=== PATIENT | male | born 1945 | race African-American/Black ===

== ENCOUNTER 2018-07-01 08:42 | Outpatient (CLI) | payer MEDICARE ==
--- NOTE | 2018-07-01 11:04 | CT ---
CT LUMBAR SPINE: INDICATIONS: Spinal stenosis. Back pain. TECHNIQUE: Multiple axial tomograms obtained through the lumbar spine with multiplanar reconstruction. FINDINGS: The lumbar vertebrae maintain height and alignment. Prominent degenerative changes are noted. There are anterior and lateral bridging osteophytes present throughout. Loss of disk space with degenerat carissa disk change and vacuum phenomena noted at L4-L5 and L5-S1. L1-L2: Mild diffuse disk bulge. Facet hypertrophy. Mild central canal stenosis. A disk osteophyte complex projects laterally, to the right, and could impinge on the exiting right nerve root. L2-L3: Broad-based disk bulge with prominent facet hypertrophy results in moderate central canal bart nosis. There is a disk osteophyte complex projecting to the left, encroaching into the left foramina , displacing the exiting left L2 nerve root. L3-L4: Diffuse disk bulge. Facet hypertrophy. Moderate to severe central canal stenosis. Disk ost eophyte complex projects laterally on both sides. L4-L5: Broad-based disk bulge and facet and ligamentous hypertrophy result in moderate central canal stenosis. Diffuse disk bulge and disk osteophyte complex, more prominent to the right; however, dif fuse disk bulge produces bilateral foraminal encroachment. Severe right foraminal stenosis. L5-S1: Broad-based bulge and facet hypertrophy. Moderate central canal stenosis, although the theca l sac is congenitally smaller. Bilateral foraminal stenosis due to hypertrophic change and disk bulg e. 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 POS: [facility]
--- NOTE | 2018-07-01 11:10 | CT ---
CT CERVICAL SPINE: Multiple axial tomograms were obtained through the cervical spine with multiplanar reconstruction. INDICATION: Spinal stenosis. Neck pain. FINDINGS: Prominent degenerative changes are seen at C5-6 and C6-7. There is mild anterior wedging of C5. The re is loss of height of C6 vertebrae. Loss of disk space at these levels with prominent anterior ost eophytes. Posterior spondylosis oat these levels is noted. The C2, C3, and C4 vertebrae appear of normal height and alignment. Mild degenerative spurring from these vertebrae. At C2-3, mild disk bulge without central canal or foraminal stenosis. At C3-4, mild disk bulge and minimal spondylosis. No central canal or foraminal stenosis. At C4-5, Mild disk bugle and mild spondylosis. No significant central canal or foraminal stenosis. At C5-6, posterior disk bulge and spondylosis impinge on and mildly flatten the anterior cord. Mild bilateral foraminal narrowing due to uncinate hypertrophy. At C6-7, prominent spondylitic osteophytes are present which severely compress the cord. Bilateral f oraminal stenosis due to hypertrophic change, severe on the left. At C7-T1, mild spondylosis without evidence of central canal stenosis. IMPRESSION: 1. Prominent posterior spondylitic change at C5-6 and C6-7 impinge on the cord and produce foraminal stenosis. These findings are more severe at C6-7 as described above. 2. Incidentally noted is a mildly prominent and heterogeneous thyroid with a suggestion of a left lo be thyroid nodule measuring 1.5 cm. Consider elective followup thyroid ultrasound. POS: [facility]
== END 2018-07-01 08:43 | disposition home or self-care (01) ==
LOC: NAV CT 08:42
PROVIDERS: ATTEND Internal Medicine
DX: M48.062 Spinal stenosis, lumbar region with neurogenic claudication (principal); M47.812 Spondylosis without myelopathy or radiculopathy, cervical region; M48.02 Spinal stenosis, cervical region; M51.36 Other intervertebral disc degeneration, lumbar region
CPT/HCPCS: 72125; 72131

== ENCOUNTER 2022-07-02 13:25 | Emergency (ER) | payer MEDICARE ==
[~2022-07-02 13:25] MED LIST: Iopamidol 370 76% 100 ML VIAL ONE
[2022-07-02] MEDS ORDERED: Ipratropium/Albuterol 3 ML NEB ONE ×3 (13:35→15:14)
[2022-07-02 14:17] LABS: #Basophils 0.2 thou/uL (0.0-0.2); #Eosinphils 0.1 thou/uL (0.0-0.7); #Lymphocytes 1.1 thou/uL (1.20-3.40); #Monocytes 0.7 thou/uL (0.11-0.59); #Neutrophils 4.5 thou/uL (1.40-6.50); %Basophils 2.4 % (0.0-1.0); %Eosinophils 1.7 % (0.0-10.0); %Lymphocytes 16.3 % (21.0-51.0); %Monocytes 10.6 % (0.0-10.0); Hemoglobin 15.9 g/dL (14.0-18.0); Mean Corpuscular HGB CONC 31.5 g/dL (32.0-36.0); Mean Corpuscular Hemoglobin 32.2 pg (27.0-31.0); Mean Platelet Volume 8.7 fL (7.4-10.4); Platelet Count 222 10x3/uL (130-400); RBC Distribution Width 13.9 % (11.5-14.5); Red Blood Cell (RBC) Count 4.93 mill/uL (4.70-6.10); White Blood Cell (WBC) Count 6.5 10x3/uL (4.8-10.8)
[2022-07-02] MEDS ORDERED: methylPREDNISolone Sod Succ/PF 125 MG/2 ML VIAL ONE (14:24)
[2022-07-02 14:42] LABS: CKMB 3.6 ng/mL (0-6.6)
[2022-07-02 15:29] LABS: ALT (SGPT) 16 U/L (8-55); AST (SGOT) 24 U/L (5-34); Alkaline Phosphatase 76 U/L (40-110); Anion Gap 14 mmol/L (10-20); BUN (Urea Nitrogen) 9 mg/dL (8.4-25.7); Bilirubin, Total 0.6 mg/dL (0.2-1.2); Calc. Creatinine Clearance 0 mL/min (70-130); Calcium 8.6 mg/dL (7.8-10.44); Carbon Dioxide 27 mmol/L (23-31); Chloride 103 mmol/L (98-107); Estimated GFR 67; Globulin 3.7 g/dL (2.4-3.5); Glucose 134 mg/dL (83-110); Potassium 3.8 mmol/L (3.5-5.1); Protein, Total 6.7 g/dL (5.8-8.1); Sodium 140 mmol/L (136-145)
[2022-07-02] MEDS ORDERED: Enoxaparin 120 MG/0.8 ML SYRINGE SC ONE (15:54)
[2022-07-02] MEDS ORDERED: Sodium Chloride 0.9% 100 ML ONE (16:54)
[2022-07-02 18:12] LABS: Base Excess-Venous 1.7 mmol/L (-2.0 to 3.0); Bicarbonate (HCO3v) 30.1 mmol/L (22.0-28.0); CO2 Tension (PvCO2) 60.1 mmHg (42.0-51.0); vO2 Saturation-calc 72.8 % (60.0-85.0)
[2022-07-02 18:13] LABS: Calcium, Ionized 1.06 mmol/L (1.15-1.33); Chloride 104 mmol/L (98-107); Hemoglobin - Calc 17.3 g/dL (14.0-18.0); Potassium 4.7 mmol/L (3.5-5.1); Sodium 139 mmol/L (138-145); T. Carbon Dioxide 31.9 mmol/L (22.0-28.0)
[2022-07-02 18:15] LABS: SARS-CoV-2 NAA Rapid Test Not Detected (NotDetected)
[2022-07-02 18:44] LABS: Bilirubin Small (Negative); Blood, Urine Large (Negative); Clarity Clear (Clear); Glucose, Urine (Dipstick) 100 mg/dL (Negative); Ketone, Urine Negative (Negative); Leukocyte Negative (Negative); Nitrite Negative (Negative); Protein, Urine (Dipstick) > or equal to 300 mg/dL (Neg-Trace); Specific Gravity, Urine 1.025 (1.005-1.030)
[2022-07-02 18:49] LABS: CKMB 3.2 ng/mL (0-6.6)
[2022-07-02 18:52] LABS: Bacteria/HPF Rare-Few HPF (None Seen); WBC/HPF None Seen HPF (0-3)
[2022-07-02 19:27] LABS: Base Excess-Venous 0.6 mmol/L (-2.0 to 3.0); CO2 Tension (PvCO2) 48.4 mmHg (42.0-51.0); Chloride 107 mmol/L (98-107); Hemoglobin - Calc 18.4 g/dL (14.0-18.0); Potassium 6.7 mmol/L (3.5-5.1); Sodium 136 mmol/L (138-145); vO2 Saturation-calc 91.2 % (60.0-85.0)
[2022-07-02 19:28] LABS: Calcium, Ionized 0.91 mmol/L (1.15-1.33)
[2022-07-03 11:17] LABS: T. Carbon Dioxide 28.5 mmol/L (22.0-28.0)
[2022-07-03 11:17] LABS: Base Excess-Venous 2.9 mmol/L (-2.0 to 3.0); Bicarbonate (HCO3v) 32.7 mmol/L (22.0-28.0); CO2 Tension (PvCO2) 69.7 mmHg (42.0-51.0); Calcium, Ionized 1.13 mmol/L (1.15-1.33); Chloride 104 mmol/L (98-107); Hemoglobin - Calc 17.8 g/dL (14.0-18.0); Sodium 142 mmol/L (138-145); T. Carbon Dioxide 34.9 mmol/L (22.0-28.0); vO2 Saturation-calc 63.4 % (60.0-85.0)
== END 2022-07-02 19:33 | disposition short-term general hospital (02) ==
LOC: NAV ERS 13:25
DX: J44.1 Chronic obstructive pulmonary disease with (acute) exacerbation (principal); E87.29 Other acidosis; I48.91 Unspecified atrial fibrillation; R77.8 Other specified abnormalities of plasma proteins; R79.1 Abnormal coagulation profile; R10.31 Right lower quadrant pain; R10.32 Left lower quadrant pain; I10 Essential (primary) hypertension; Z20.822 Contact with and (suspected) exposure to COVID-19; Z87.891 Personal history of nicotine dependence; Z79.82 Long term (current) use of aspirin; Z79.899 Other long term (current) drug therapy
CPT/HCPCS: 71045; 71275; 74177; 80053; 82330; 82435 ×2; 82553; 82803; 83690; 83880; 84132 ×2; 84295 ×2; 84484 ×2; 85014 ×2; 85025; 85379; 93005; 94640; 94660; 96365; 96366; 96372; 96375; 96376; 99285; U0002; 36415; 81003; 81015; J1650; J2930; J7620; Q9967